=== PATIENT | male | born 1980 | race Caucasian/White ===

== ENCOUNTER 2020-04-05 16:05 | Emergency (ER) | payer SELFPAY ==
[~2020-04-05] VITALS: Ht 182.9 cm; Wt 79.0 kg
[2020-04-05 16:07] VITALS: BP 131/76
[2020-04-05] MEDS ORDERED: AMLODIPINE (16:07)
[2020-04-05] MEDS ORDERED: klonopin (16:12)
== END 2020-04-05 16:40 | disposition left against medical advice (07) ==
LOC: ER 16:05
DX: Z76.0 Encounter for issue of repeat prescription (principal); F91.8 Other conduct disorders; F41.9 Anxiety disorder, unspecified; M81.8 Other osteoporosis without current pathological fracture; R03.0 Elevated blood-pressure reading, without diagnosis of hypertension
CPT/HCPCS: 93005; 99283